=== PATIENT | male | born 1985 | race Caucasian/White ===

== ENCOUNTER 2024-05-10 13:25 | Inpatient (IN) ==
--- NOTE | 2024-05-10 14:22 | Emergency Department Note ---
Impression & Plan Acute cellulitis, Penile discharge, Cellulitis of scrotum, One undescended testicle ED Provider Note Name: MIMI BELTRE Age: 39 Sex: Male Arrives Via: Walk-In Informant: Patient, ED Provider: Lui Weinstein MD Chief Complaint: Scrotal pain Impression: As per impressions above Medical Decision Makin-year-old male uncontrolled diabetic arrives for evaluation of severe scrotal and penile pain. 3 to 4 days fevers chills illness. Patient arrives appearing quite ill. Septic workup initiated with cultures obtained. Examination does reveal a severe cellulitis of the penile skin and scrotum and developing pustules in the suprapubic region. Cannot completely rule out that these are blisters from herpetic but much more likely bacterial in nature. Patient was empirically given IV fluids along with broad-spectrum antibiotics. Fortunately patient's blood pressure remained stable and his labs actually turned quite reassuring. He is moderately hyperglycemic but he is not in DKA. I did obtain a CT of the abdomen pelvis with IV contrast which does not show any clear evidence of gas-forming bacteria. I do not see any clear sign that this is truly Christianne's gangrene and is more along the lines of a severe cellulitis. I did give urology a heads up about the patient however I do not see a clear indication for emergent surgical intervention. Cultures were sent of the area along with viral swab. Patient agreeable to hospitalization and hospitalist consulted for further management. While examination concerning for sepsis given my findings I do not feel he is severe sepsis at this time. Triage/Nursing Notes reviewed by Me Differential:Viral syndrome, cellulitis, forniers gangrene, pharyngitis, pneumonia, influenza, meningitis, urinary tract infection, sepsis, bacteremia, as well as other pathologies. Vital Signs: reviewed and remarkable for tachycardic Interventions: Normal saline bolus, Zosyn IV, Dilaudid IV x 2 Labs:ED labs Reviewed by me and remarkable for normal lactic acid, normal white count and normal procalcitonin. Moderate hyperglycemia Imagin view chest x-ray as per my interpretation. Indication sepsis. No infiltrate or effusion appreciated. EKG:As per my interpretation. Indication sepsis. Sinus tachycardia 108 bpm QTc of 439. There is no ectopy nor ischemia. No previous EKGs for comparison Cardiac/Tele Monitoring: Cardiac Monitoring: An Order was placed for continuous cardiac monitoring. The monitor shows a rate of 110 with a sinus tach rhythm. Consults:Discussed briefly with Dr. Pisano of urology to make him aware patient being hospitalized. Discussed with Dr. Giraldo of hospitalist service Plan: Disposition:Hospitalization. History of Present Illness: 39-year-old gentleman arrives for evaluation of illness. Patient states for the last 3 to 4 days he has had increasing fevers, chills, illness. Mild shortness of breath and cough initially. He is noted that he started developing redness and pain around his penis and scrotum and over the last 24 hours the entire area has become edematous erythematous and draining pus. He has developed small pustules throughout the entire area as well. He has severe pain with any palpation of the area. Denies any falls, trauma, injuries. Has a history of yeast infections of the groin for which she was recently treated with ketoconazole. Patient has a history of diabetes and admits that he does not ever check his blood sugars. He does use insulin daily but has not been taking his metformin as he was instructed to. Patient denies any syncope, chest pain, difficulty breathing, runny nose or other concerning signs or symptoms. Patient states that due to the swelling in his genital region he is no longer able to stand and pee or has he says push his penis out. He has been having to sit down to urinate the last few hours. Past Medical History: Diabetes, hypertension, dyslipidemia, depression Home Medications: Insulin, metformin, lisinopril, atorvastatin, sertraline Allergies: No known drug allergies Vitals:Blood Pressure: 144/90, Pulse 105, RR 18, T 36.6C, O2 98% on RA Physical Exam: GENERAL: Patient is ill/unwell appearing and in moderate distress. Flushed RESPIRATORY: Mild dyspnea/tachypnea though clear lung sounds throughout CARDIOVASCULAR: Tachycardic.No murmur appreciated. GASTROINTESTINAL: Abdomen soft, non-tender, no peritonitis. : Patient with an internally inverted penis. He has diffuse erythema and edema of the peripenile skin, scrotum and developing small blisters surrounding the suprapubic and genital area. Severe pain with even light palpation of the area EXTREMITIES: Normal motion all extremities, no cyanosis, no edema. NEUROLOGIC: Alert and oriented. No focal neurologic deficits appreciated SKIN: No rash, no jaundice, no diaphoresis. PSYCH: Appropriate GCS: 15 ED Course: Times/Reassessments: Patient does appear significantly improved with IV pain medication along with IV fluids. Agreeable to hospitalization. Lui Weinstein MD Past Med/Surg History Problem List (Updated 05/12/24 @ 15:54 by Lui Weinstein MD) One undescended testicle (Acute) Cellulitis of scrotum (Acute) Acute cellulitis (Acute) Penile discharge (Acute) Type 2 diabetes mellitus Medical History (Updated 05/12/24 @ 15:54 by Lui Weinstein MD) DKA (diabetic ketoacidosis) Social History Smoking Status: Former smoker Tobacco Type: Cigarettes Second Hand Exposure: No; Do You Dip or Chew Tobacco: Yes; Hx Alcohol Use: Yes Alcohol type: beer Hx Substance Use: No Preferred Language: [place] Communication Ability: Effective Beliefs That Will Affect Care: None Current Living Situation: Family Feels Safe at Home: Yes Assistive Devices: None Allergies Allergies Allergy/AdvReac Type Severity Reaction Status Date / Time No Known Allergies Allergy Unverified 05/10/24 16:19 Home Meds Home Medications Medication Instructions Recorded Confirmed atorvastatin 10 mg tablet 10 mg PO DAILY 05/10/24 05/10/24 insulin aspart U-100 100 unit/mL 1 sliding scale dose subcut 05/10/24 05/10/24 (3 mL) subcutaneous pen (Novolog USEASDIRECTD FlexPen U-100 Insulin aspart) insulin glargine 100 unit/mL (3 40 unit subcut DAILY 05/10/24 05/10/24 mL) subcutaneous pen (Lantus Solostar U-100 Insulin) lisinopril 20 mg tablet 20 mg PO DAILY 05/10/24 05/10/24 metformin 500 mg tablet 500 mg PO BID 05/10/24 05/10/24 sertraline 50 mg tablet 50 mg PO DAILY 05/10/24 05/10/24 Results & Data (ED) Vital Signs Vital Signs - 24 hr 05/10/24 13:26 05/10/24 13:26 05/10/24 15:01 Temperature 36.6 C Temperature Source Temporal Artery Scan Pulse Rate 115 H Pulse Rate [Right] 105 H 110 H Pulse Rhythm [Right] Regular Pulse Strength [Right] Normal Respiratory Rate 18 18 20 Respiratory Effort / Characteristics Non-Labored Spontaneous Respiratory Depth Normal Respiratory Pattern Regular Blood Pressure 136/102 H Blood Pressure [Left Arm] 144/90 H 147/92 H Blood Pressure Mean 113 Blood Pressure Mean [Left Arm] 108 110 Pulse Oximetry 99 98 96 Oxygen Delivery Method Room Air Sepsis Recent Fever Within 48 Hours No Sepsis New/Unexplained Change in Mental Status N/A Sepsis Action Taken by Nursing No Action Required Laboratory Data 05/12/24 06:44 05/12/24 06:44 Lab Results 05/10/24 05/10/24 05/10/24 Range/Units 13:50 14:29 14:33 POC Hgb (14.0-18.0) g/dl POC Hct (42-52) % ESR (0-15) mm/hr VBG pH 7.41 (7.36-7.41) VBG pCO2 47 (38-50) mmHg VBG pO2 < 20 mmHg VBG HCO3 30 mmol/L VBG O2 Saturation < 60.0 % VBG Base Excess 4.3 mEq/L POC Sodium (135-144) mmol/L POC Potassium (3.3-5.0) mmol/L POC Chloride (101-112) mmol/L POC Total CO2 (24-31) mmol/L POC Anion Gap (16-25) mmol/L POC BUN (7-18) mg/dl POC Creatinine (0.6-1.3) mg/dl POC Glucose 252 H (70-99) mg/dl POC Glucose (other) (70-99) mg/dl Lactate 1.6 (0.4-2.0) mmol/L POC Ioniz Calcium Jordan (1.12-1.32) mmol/l C-Reactive Protein 18.77 H (0-0.5) mg/dl 05/10/24 05/10/24 Range/Units 14:57 16:00 POC Hgb 15.3 (14.0-18.0) g/dl POC Hct 45 (42-52) % ESR 45 H (0-15) mm/hr VBG pH (7.36-7.41) VBG pCO2 (38-50) mmHg VBG pO2 mmHg VBG HCO3 mmol/L VBG O2 Saturation % VBG Base Excess mEq/L POC Sodium 137 (135-144) mmol/L POC Potassium 4.3 (3.3-5.0) mmol/L POC Chloride 98 L (101-112) mmol/L POC Total CO2 27 (24-31) mmol/L POC Anion Gap 17.0 (16-25) mmol/L POC BUN 13 (7-18) mg/dl POC Creatinine 0.5 L (0.6-1.3) mg/dl POC Glucose (70-99) mg/dl POC Glucose (other) 258 H (70-99) mg/dl Lactate (0.4-2.0) mmol/L POC Ioniz Calcium Jordan 1.10 L (1.12-1.32) mmol/l C-Reactive Protein (0-0.5) mg/dl Administered Medications Atorvastatin Calcium (Atorvastatin 10 Mg Tab) 10 mg PO DAILY [facility] Stop: 06/10/24 08:59 Last Admin: 05/12/24 08:21 Dose: 10 mg Documented By: Admin: 05/11/24 07:38 Dose: 10 mg Documented By: AMY Cefepime HCl (Maxipime 2000mg) 2,000 mg in 20 mls @ 5 mls/min IV Q8H [facility]; Protocol Stop: 05/20/24 20:59 Last Admin: 05/12/24 12:48 Dose: 5 mls/min Documented By: Admin: 05/12/24 05:35 Dose: 5 mls/min Documented By: Yolanda Admin: 05/11/24 21:12 Dose: 5 mls/min Documented By: Yolanda Admin: 05/11/24 12:06 Dose: 5 mls/min Documented By: Admin: 05/11/24 05:39 Dose: 5 mls/min Documented By: Yolanda Admin: 05/10/24 20:13 Dose: 5 mls/min Documented By: DWAIN Insulin Aspart (Insulin Aspart Per Unit Charge) 0 units SC ACHS [facility] Stop: 06/10/24 11:29 Last Admin: 05/12/24 12:48 Dose: 24 units Documented By: DHRUV Co-signed By: ELVIRA Admin: 05/12/24 08:52 Dose: 21 units Documented By: DHRUV Co-signed By: ELVIRA Admin: 05/11/24 21:07 Dose: 208 units Documented By: Yolanda Co-signed By: KITA Admin: 05/11/24 17:52 Dose: 15 units Documented By: AMY Co-signed By: DYLLAN Admin: 05/11/24 13:14 Dose: 10 units Documented By: AMY Co-signed By: MATEO Insulin Glargine (Lantus Per Unit Charge) 0 units SQ HS [facility]; Protocol Stop: 06/10/24 20:59 Last Admin: 05/11/24 21:07 Dose: 10 units Documented By: [id number] Co-signed By: KITA Insulin Glargine (Lantus Per Unit Charge) 50 units SQ DAILY [facility] Stop: 06/11/24 08:59 Last Admin: 05/12/24 08:53 Dose: 50 units Documented By: DHRUV Co-signed By: ELVIRA Lisinopril (Lisinopril 20 Mg Tab) 20 mg PO DAILY [facility] Stop: 06/10/24 08:59 Last Admin: 05/12/24 08:21 Dose: 20 mg Documented By: Admin: 05/11/24 07:38 Dose: 20 mg Documented By: AMY Sertraline HCl (Sertraline Hcl 50 Mg Tablet) 50 mg PO DAILY [facility] Stop: 06/10/24 08:59 Last Admin: 05/12/24 08:21 Dose: 50 mg Documented By: Admin: 05/11/24 07:38 Dose: 50 mg Documented By: AMY Tramadol HCl (Tramadol Hcl 50 Mg Tablet) 50 mg PO Q4H PRN PRN Reason: Pain Stop: 06/10/24 13:01 Last Admin: 05/12/24 12:48 Dose: 50 mg Documented By: Admin: 05/12/24 05:45 Dose: 50 mg Documented By: [id number] Admin: 05/11/24 22:19 Dose: 50 mg Documented By: [id number] Admin: 05/11/24 17:52 Dose: 50 mg Documented By: Admin: 05/11/24 13:14 Dose: 50 mg Documented By: AMY Valacyclovir HCl (Valacyclovir Hcl 500 Mg Tablet) 1,000 mg PO BID [facility] Stop: 05/20/24 20:59 Last Admin: 05/12/24 08:21 Dose: 1,000 mg Documented By: Admin: 05/11/24 20:48 Dose: 1,000 mg Documented By: [id number] Admin: 05/11/24 07:38 Dose: 1,000 mg Documented By: Admin: 05/10/24 20:20 Dose: 1,000 mg Documented By: DWAIN Discontinued Medications Acetaminophen (Acetaminophen 325 Mg Tab) 650 mg PO Q4H PRN PRN Reason: Fever/Mild Pain (Pain 1,2,3) Stop: 06/09/24 18:00 Last Admin: 05/12/24 15:19 Dose: 650 mg Documented By: Admin: 05/12/24 08:26 Dose: 650 mg Documented By: Admin: 05/11/24 20:47 Dose: 650 mg Documented By: [id number] Admin: 05/11/24 16:00 Dose: 650 mg Documented By: Admin: 05/11/24 11:28 Dose: 650 mg Documented By: Admin: 05/11/24 06:32 Dose: 650 mg Documented By: [id number] Hydromorphone HCl (Hydromorphone Inj 1 Mg/Ml Syringe) 1 mg IV NOW STA Stop: 05/10/24 14:18 Last Admin: 05/10/24 14:36 Dose: 1 mg Documented By: ATIYA Hydromorphone HCl (Hydromorphone Inj 1 Mg/Ml Syringe) 1 mg IV NOW STA Stop: 05/10/24 16:23 Last Admin: 05/10/24 17:05 Dose: 1 mg Documented By: CRISTINA Hydromorphone HCl (Hydromorphone Inj 1 Mg/Ml Syringe) 1 mg IV Q3H PRN PRN Reason: Severe Pain (7,8,9,10) on NRS Stop: 05/24/24 18:00 Last Admin: 05/11/24 12:08 Dose: 1 mg Documented By: Admin: 05/11/24 08:50 Dose: 1 mg Documented By: Admin: 05/11/24 05:39 Dose: 1 mg Documented By: [id number] Admin: 05/10/24 23:15 Dose: 1 mg Documented By: [id number] Admin: 05/10/24 20:11 Dose: 1 mg Documented By: DWAIN Hydromorphone HCl (Hydromorphone Inj 0.5 Mg/0.5 Ml Syr) 0.5 mg IV NOW STA Stop: 05/10/24 22:03 Last Admin: 05/10/24 22:17 Dose: Not Given Documented By: [id number] Sodium Chloride (Nss) 1,000 mls @ 999 mls/hr IV .Q1H1M [facility] Stop: 05/10/24 15:30 Last Infusion: 05/10/24 15:15 Dose: Infused Documented By: Admin: 05/10/24 14:44 Dose: 999 mls/hr Documented By: NA Sodium Chloride (Nss) 1,000 mls @ 999 mls/hr IV .Q1H1M [facility] Stop: 05/10/24 16:30 Last Infusion: 05/10/24 18:04 Dose: Infused Documented By: Admin: 05/10/24 17:02 Dose: 999 mls/hr Documented By: Infusion: 05/10/24 15:15 Dose: Infused Documented By: Admin: 05/10/24 14:45 Dose: 999 mls/hr Documented By: NA Piperacillin Sod/Tazobactam Sod (Zosyn) 4.5 gm in 100 mls @ 200 mls/hr IV NOW ONE; Protocol Stop: 05/10/24 16:27 Last Infusion: 05/10/24 17:07 Dose: Infused Documented By: Admin: 05/10/24 16:30 Dose: 200 mls/hr Documented By: CRISTNIA Vancomycin HCl 2,750 mg/ (Sodium Chloride) 555 mls @ 200 mls/hr IV NOW ONE Stop: 05/10/24 18:44 Last Infusion: 05/10/24 19:42 Dose: Infused Documented By: [id number] Admin: 05/10/24 16:19 Dose: 200 mls/hr Documented By: CRISTINA Vancomycin HCl 2,000 mg/ (Sodium Chloride) 540 mls @ 200 mls/hr IV Q8H [facility] Stop: 05/21/24 00:00 Last Infusion: 05/12/24 12:02 Dose: Infused Documented By: Admin: 05/12/24 08:20 Dose: 200 mls/hr Documented By: Infusion: 05/12/24 03:50 Dose: Infused Documented By: [id number] Admin: 05/11/24 23:52 Dose: 200 mls/hr Documented By: [id number] Infusion: 05/11/24 17:54 Dose: Infused Documented By: Admin: 05/11/24 15:08 Dose: 200 mls/hr Documented By: Infusion: 05/11/24 10:17 Dose: Infused Documented By: Admin: 05/11/24 07:31 Dose: 200 mls/hr Documented By: Infusion: 05/11/24 01:59 Dose: Infused Documented By: [id number] Admin: 05/10/24 23:15 Dose: 200 mls/hr Documented By: Yolanda Acetaminophen (Ofirmev) 1,000 mg in 100 mls @ 400 mls/hr IV NOW STA Stop: 05/10/24 18:28 Last Infusion: 05/10/24 19:08 Dose: Infused Documented By: Admin: 05/10/24 18:26 Dose: 400 mls/hr Documented By: SHRAVAN Fluconazole (Diflucan) 100 mg in 50 mls @ 100 mls/hr IV Q24H [facility] Stop: 05/20/24 19:29 Last Infusion: 05/11/24 21:23 Dose: Infused Documented By: Yolanda Admin: 05/11/24 20:47 Dose: 100 mls/hr Documented By: Yolanda Infusion: 05/10/24 20:46 Dose: Infused Documented By: Admin: 05/10/24 20:14 Dose: 100 mls/hr Documented By: DWAIN Insulin Aspart (Insulin Aspart Per Unit Charge) 0 units SC ACHS [facility] Stop: 06/09/24 18:00 Last Admin: 05/10/24 20:06 Dose: Not Given Documented By: Yolanda Admin: 05/10/24 19:39 Dose: 9 units Documented By: DWAIN Co-signed By: Yolanda Insulin Aspart (Insulin Aspart Per Unit Charge) 0 units SC Q6 [facility] Stop: 06/10/24 05:59 Last Admin: 05/11/24 05:39 Dose: 6 units Documented By: Yolanda Co-signed By: LUIS Insulin Aspart (Insulin Aspart Per Unit Charge) 0 units SC NOW ONE Stop: 05/11/24 08:31 Last Admin: 05/11/24 08:51 Dose: 8 units Documented By: AMY Co-signed By: IVANA Insulin Glargine (Lantus Per Unit Charge) 40 units SQ DAILY [facility] Stop: 06/10/24 08:59 Last Admin: 05/11/24 08:51 Dose: 40 units Documented By: AMY Co-signed By: IVANA Insulin Glargine (Lantus Per Unit Charge) 20 units SQ NOW [facility] Stop: 05/10/24 18:29 Last Admin: 05/10/24 19:40 Dose: 20 units Documented By: DWAIN Co-signed By: [id number] Ioversol (Optiray 320 125ml) 119 ml IV ONCE ONE Stop: 05/10/24 15:15 Last Admin: 05/10/24 15:15 Dose: 119 ml Documented By: BERTAK Oxycodone HCl (Oxycodone Hcl Ir 5 Mg Tab (Immediate Release)) 5 mg PO NOW [facility] Stop: 05/11/24 23:44 Last Admin: 05/11/24 23:49 Dose: 5 mg Documented By: [id number] Tramadol HCl (Tramadol Hcl 50 Mg Tablet) 50 mg PO NOW [facility] Stop: 05/10/24 22:10 Last Admin: 05/10/24 22:24 Dose: 50 mg Documented By: DWAIN Discharge Plan Visit Data Chief Complaint: Swelling/Edema to Extremity Stated Complaint: DKA, DIZZY, VOMITING, GENITAL PAIN/EDEMA ED Provider: Lui Weisntein Discharge Problem: Acute cellulitis, Penile discharge, Cellulitis of scrotum, One undescended testicle Patient Disposition: Admitted As Inpatient Discharge Instructions Interventions: ED Discharge Assessment Last Done: 05/10/24 17:35 Discharge Problem: One undescended testicle Qualifiers: Undescended testicle location: high scrotal Qualified Code(s): Q53.13 - Unilateral high scrotal testis
[2024-05-10] MEDS: HYDROmorphone INJ 1 MG/ML SYRINGE IV STA ×2 (14:36→17:05)
[2024-05-10 14:41] LABS: Basophils # (auto) 0.02 K/uL (0.00-0.20); Basophils % (auto) 0.3 %; Eosinophils # (auto) 0.07 K/uL (0.00-0.50); Eosinophils % (auto) 1.2 %; Hematocrit (blood only) 46.7 % (42.0-52.0); Hemoglobin 15.4 g/dl (14.0-18.0); Immature Granulocytes # (auto) 0.04 K/uL (0.01-0.20); Immature Granulocytes % (auto) 0.7 %; Lymphocytes # (auto) 0.58 K/uL (1.20-3.40); Lymphocytes % (auto) 9.9 %; Mean Corpuscular Hemoglobin 26.8 pg (25.0-34.0); Mean Corpuscular Volume 81.4 fL (80.0-100.0); Mean Platelet Volume 8.2 fL (9.4-12.4); Monocytes # (auto) 0.55 K/uL (0.11-0.59); Monocytes % (auto) 9.4 %; Neutrophils # (auto) 4.59 K/uL (1.40-6.50); Neutrophils % (auto) 78.5 %; Platelet Count 206 K/uL (130-400); RDW Coefficient of Variation 13.7 % (11.5-14.5); RDW Standard Deviation 40.5 fL (36.4-46.3); Red Blood Count 5.74 M/uL (4.70-6.10); White Blood Count 5.85 K/ul (4.8-10.8)
[2024-05-10] MEDS: SODIUM CHLORIDE 0.9% 1,000 ML IV SCH ×2 (14:44→14:45)
[2024-05-10 14:45] LABS: Base Excess VBG 4.3 mEq/L; HCO3 VBG 30 mmol/L; Oxygen Saturation VBG < 60.0 %; PCO2 VBG 47 mmHg (38-50); PO2 VBG < 20 mmHg; pH VBG 7.41 (7.36-7.41)
[2024-05-10 14:57] LABS: Albumin Level 3.7 gm/dl (3.4-5.0); Bilirubin Direct 0.2 mg/dl (0-0.2); Bilirubin,Total 0.6 mg/dl (0.2-1.0); Calcium 9.2 mg/dl (8.6-10.3); Creatinine Clr Calc Pharmacy 258.8 ml/min; Magnesium 1.7 mg/dl (1.7-2.4); Potassium 3.8 mmol/L (3.5-5.1); Total Protein 8.1 gm/dl (6.0-8.3)
[2024-05-10 15:02] LABS: Troponin I High Sensitivity 6.1 pg/ml (0-20)
[2024-05-10 15:10] LABS: iSTAT Creatinine 0.5 mg/dl (0.6-1.3); iSTAT Hemoglobin 15.3 g/dl (14.0-18.0); iSTAT Ionized Calcium 1.1 mmol/l (1.12-1.32); iSTAT Potassium 4.3 mmol/L (3.3-5.0)
--- NOTE | 2024-05-10 15:12 | XRay Report ---
Chest radiograph, one view History: Sepsis Comparison: None Findings: Single AP view of the chest performed. No focal consolidation or pleural effusion. No pneumothorax. The cardiomediastinal silhouette is within normal limits. Normal pulmonary vascularity. No evidence for lymphadenopathy. No visualized bony or soft tissue abnormality. Impression: Normal chest radiograph Electronically signed by Dannie Flowers 05-10-2024 3:10 PM
[2024-05-10] MEDS: OPTIRAY 320 125ml IV ONE (15:15)
--- NOTE | 2024-05-10 15:37 | CT Scan Report ---
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 TECHNIQUE: Helical CT imaging of the abdomen and pelvis was performed following uneventful administration of 119 mL of Optiray 320 IV contrast. Images are presented in axial, sagittal, coronal reformats COMPARISON: None FINDINGS: Lung Bases/Inferior Mediastinum: Unremarkable Liver: Mild hepatic steatosis. Gallbladder: Unremarkable Spleen: Unremarkable Adrenals: Unremarkable Pancreas: Unremarkable Kidneys: Unremarkable Stomach/Bowel: Small bowel loops are normal in caliber. Normal caliber appendix. The colon is unremarkable. A few scattered colonic diverticula are noted. Stomach and duodenum are unremarkable. Lymph nodes: Enlarged bilateral inguinal lymph nodes are nonspecific. Index left inguinal lymph node measures 3.1 x 1.7 cm on series 2 image 101 Vasculature: Unremarkable Pelvis: Urinary bladder, prostate, and seminal vesicles are unremarkable. No free pelvic fluid. Soft Tissues: Enlarged bilateral inguinal lymph nodes may be reactive. Small left scrotal hydrocele. Small fluid collection along the right inguinal canal measuring 4.6 x 2.6 x 5.2 cm on series 3 image 465 no soft tissue gas involving the pelvic or scrotal soft tissues is appreciated. Bones: Degenerative changes of the hips, pelvis, and lumbar spine. IMPRESSION: 1. Small fluid collection measuring 4.6 x 2.6 x 5.2 cm along the right inguinal canal on series 3 image 465possibly representingsmall scrotal hydrocele with an incompletely descended right testicle. Small left scrotal hydrocele. Minimal subcutaneous inflammation along the scrotum and anterior pelvic soft tissues. No soft tissue gas. 2. Enlarged bilateral inguinal lymph nodes are nonspecific and could be reactive in the setting of acute cellulitis. Short interval follow-up is recommended. 3. Numerous additional chronic and/or incidental findings as detailed above. Electronically signed by Soham Ellis 05-10-2024 3:36 PM
[2024-05-10] MEDS ORDERED: VANCOMYCIN CONSULT ACTIVE PRN ×2 (15:58→18:01)
[2024-05-10] MEDS: VANCOMYCIN HCL 2,750 MG in SODIUM CHLORIDE 0.9% 500 ML IV ONE (16:19)
--- NOTE | 2024-05-10 16:24 | History & Physical Report ---
Date of Service May 10, 2024 Assessment & Plan (1) Penile discharge: (2) Acute cellulitis: (3) Type 2 diabetes mellitus: Plan Yonis is a 39-year-old male with PMH of T2DM and DKA. He presented on 05/10 for groin pain and penile discharge. Patient reports that the pain in his groin region is a 9.25 out of 10 at time admission. He characterizes it as a burning pain that feels like "fire", with occasional sharp stabbing pain in his groin. He reports his buttocks is numb at this time. No radiation, the pain does stay in the genitals. No numbness or tingling going down his legs. He endorses pus- like/serosanguineous discharge for the past 3 days. He denies prior history of STDs. #Penile discharge/groin pain No leukocytosis; afebrile on arrival Procalcitonin WNL CRP and ESR ordered, pending A/P CT on arrival revealed small fluid collection along the right inguinal canal which may represent a scrotal hydrocele No soft tissue gas noted on A/P CT Blistering noted above the groin infection; ?Herpetic infection; ?Acute worsening of fungal infection Wound culture ordered, pending HSV 1+2 DNA PCR ordered, pending Chlam+GC RNA ordered, pending Given acute risk for herpetic infection, empiric coverage with valacyclovir 1000 mg p.o. BID Vancomycin 2000 mg IV q12h Cefepime 2000 mg IV q8h Acetaminophen and Dilaudid as needed for fever/pain control Urology consult appreciated # Poorly controlled T2DM While there is no A1c on file, he reports his last A1c was around 12% Hold metformin Patient is normally on Lantus 40u daily Lantus BID + SSI while inpatient T2DM diet BSG ACHS Adjust regimen as needed Pharmacy glycemic management consult appreciated Diabetic education consult appreciated AM A1c Chronic stable conditions: HLD-atorvastatin HTN-lisinopril Depression-sertraline Disposition: Admit to MedSur telemetry Full code T2DM diet VTE PPx: SCDs History of Present Illness Chief Complaint: Groin pain, penile discharge Primary Care Provider: NO PCP Yonis is a 39-year-old male with PMH of T2DM and DKA. He presented on 05/10 for groin pain and penile discharge. Patient reports that the pain in his groin region is a 9.25 out of 10 at time admission. He characterizes it as a burning pain that feels like "fire", with occasional sharp stabbing pain in his groin. He reports his buttocks is numb at this time. No radiation, the pain does stay in the genitals. No numbness or tingling going down his legs. He endorses pus- like/serosanguineous discharge for the past 3 days. He denies prior history of STDs. He is sexually active with his . He reports he did have a fever a couple days ago measuring up to 102 F. He has been taking ibuprofen, Amrita- [place], DayQuil, and NyQuil for his symptoms, without much relief. Patient took his regular morning medicine today; he normally takes 40 units of Lantus daily, but only took 20 this morning. Only recent change in medication, is that he started back on metformin yesterday. Patient denies smoking tobacco, but does endorse chewing tobacco. He denies vaping or recent alcohol use. 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 He denies prior history of DVT/PE. In regard to diabetes, patient previously followed with Dr. Ravi ( Endo) and Mary, and would like to be reconnected if possible. Patient is hypertensive at 147/92, and tachycardic at 106 bpm at time of admission. ED course: Vancomycin 2750 mg IV Zosyn 4.5 g IV NSS 1000 mL IV x 2 Dilaudid 1 mg IV ROS: Patient endorses burning penile pain/discharge, fever, body aches, chills, night-sweats, an episode of DAVIS (resolved; occurred while sick with flu earlier in this week), and numbness/tingling in the buttocks. Patient denies headaches, changes in vision, photophobia, dry cough, chest pain, pleuritic CP, SOB at rest, abdominal pain, N/V/D, or numbness or tingling going down the legs. Allergies Allergy/AdvReac Type Severity Reaction Status Date / Time No Known Allergies Allergy Unverified 05/10/24 16:19 Home Medications Medication Instructions Recorded Confirmed Type atorvastatin 10 mg tablet 10 mg PO DAILY 05/10/24 05/10/24 History insulin aspart U-100 100 unit/mL 1 sliding scale dose subcut 05/10/24 05/10/24 History (3 mL) subcutaneous pen (Novolog USEASDIRECTD FlexPen U-100 Insulin aspart) insulin glargine 100 unit/mL (3 40 unit subcut DAILY 05/10/24 05/10/24 History mL) subcutaneous pen (Lantus Solostar U-100 Insulin) lisinopril 20 mg tablet 20 mg PO DAILY 05/10/24 05/10/24 History metformin 500 mg tablet 500 mg PO BID 05/10/24 05/10/24 History sertraline 50 mg tablet 50 mg PO DAILY 05/10/24 05/10/24 History Past Med/Surg History Problem List (Updated 05/10/24 @ 17:28 by Noah Ca PA-C) Acute cellulitis Penile discharge Type 2 diabetes mellitus Medical History (Updated 05/10/24 @ 17:28 by Noah Ca PA-C) DKA (diabetic ketoacidosis) Social History Smoking Status: Never smoker Preferred Language: Nepali Feels Safe at Home: Yes Review of Systems Review of Systems: See HPI above Physical Exam Physical Exam: General: Moderate physical distress secondary to genital pain; family bedside; non-toxic appearing; cooperative; SpO2 97% on RA HEENT: normocephalic, atraumatic; no scleral icterus; PERRLA; vision and hearing grossly intact Neck: supple; no lymphadenopathy; trachea midline Skin: warm, dry without signs of tenting; no cyanosis; no rashes, bruising, lesions, or erythema noted CV: chest wall NTP; RR, tachycardic around 105 bpm; S1/S2 normal; no murmurs/rubs/gallops; pulses intact and symmetric at radial, DP, and PT Lungs: no acute respiratory distress; symmetrical chest wall expansion; clear breath sounds across all lung padron w/o adventitious sounds; no wheezing ABD: Soft, NTP; BS present; no rebound/guarding; moderate distention secondary to body habitus : Patient was assessed with Dr. Giraldo at bedside; patient exhibits erythematous crusting lesions above the penis; penile discharge and erythema surrounding the genitals MSK: no tics or fasciculations; no edema noted in the LEs b/l, nonerythematous Neuro: A&Ox3; normal mood and affect; fluent speech; no focal deficits; sensation intact and symmetric in lower extremities bilaterally Results & Data Results & Data Vital Signs (Past 12 Hours) Vital Signs Temp Pulse Pulse Resp BP BP Pulse Ox 05/10/24 16:18 104 H 20 147/87 H 97 05/10/24 15:44 106 H 05/10/24 15:01 110 H 20 147/92 H 96 05/10/24 13:26 105 H 18 144/90 H 98 05/10/24 13:26 36.6 C 115 H 18 136/102 H 99 O2 Del Method 05/10/24 16:18 Room Air 05/10/24 15:44 05/10/24 15:01 Room Air 05/10/24 13:26 05/10/24 13:26 Laboratory Results Abnormal lab results 05/10/24 05/10/24 05/10/24 Range/Units 13:50 14:57 Unknown MPV 8.2 L (9.4-12.4) fL Lymph # (Auto) 0.58 L (1.20-3.40) K/uL Sodium 135 L (136-145) mmol/L POC Chloride 98 L (101-112) mmol/L Chloride 97 L (98-107) mmol/L POC Creatinine 0.5 L (0.6-1.3) mg/dl BUN/Creatinine Ratio 21.0 H (10-20) Glucose 262 H (70-99(Fasting)) mg/dl POC Glucose 252 H (70-99) mg/dl POC Glucose (other) 258 H (70-99) mg/dl POC Ioniz Calcium Jordan 1.10 L (1.12-1.32) mmol/l Diagnostic Findings Abdomen/Pelvis CT 05/10/24 14:17 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 TECHNIQUE: Helical CT imaging of the abdomen and pelvis was performed following uneventful administration of 119 mL of Optiray 320 IV contrast. Images are presented in axial, sagittal, coronal reformats COMPARISON: None FINDINGS: Lung Bases/Inferior Mediastinum: Unremarkable Liver: Mild hepatic steatosis. Gallbladder: Unremarkable Spleen: Unremarkable Adrenals: Unremarkable Pancreas: Unremarkable Kidneys: Unremarkable Stomach/Bowel: Small bowel loops are normal in caliber. Normal caliber appendix. The colon is unremarkable. A few scattered colonic diverticula are noted. Stomach and duodenum are unremarkable. Lymph nodes: Enlarged bilateral inguinal lymph nodes are nonspecific. Index left inguinal lymph node measures 3.1 x 1.7 cm on series 2 image 101 Vasculature: Unremarkable Pelvis: Urinary bladder, prostate, and seminal vesicles are unremarkable. No free pelvic fluid. Soft Tissues: Enlarged bilateral inguinal lymph nodes may be reactive. Small left scrotal hydrocele. Small fluid collection along the right inguinal canal measuring 4.6 x 2.6 x 5.2 cm on series 3 image 465 no soft tissue gas involving the pelvic or scrotal soft tissues is appreciated. Bones: Degenerative changes of the hips, pelvis, and lumbar spine. IMPRESSION: 1. Small fluid collection measuring 4.6 x 2.6 x 5.2 cm along the right inguinal canal on series 3 image 465possibly representingsmall scrotal hydrocele with an incompletely descended right testicle. Small left scrotal hydrocele. Minimal subcutaneous inflammation along the scrotum and anterior pelvic soft tissues. No soft tissue gas. 2. Enlarged bilateral inguinal lymph nodes are nonspecific and could be reactive in the setting of acute cellulitis. Short interval follow-up is recommended. 3. Numerous additional chronic and/or incidental findings as detailed above. Electronically signed by Soham Ellis 05-10-2024 3:36 PM Chest X-Ray 05/10/24 14:18 Chest radiograph, one view History: Sepsis Comparison: None Findings: Single AP view of the chest performed. No focal consolidation or pleural effusion. No pneumothorax. The cardiomediastinal silhouette is within normal limits. Normal pulmonary vascularity. No evidence for lymphadenopathy. No visualized bony or soft tissue abnormality. Impression: Normal chest radiograph Electronically signed by Dannie Flowers 05-10-2024 3:10 PM ECG Additional Comments: ECG revealed sinus tachycardia at 108 bpm; QTc 439 Code Status & VTE Plan Code Status Full code VTE Prophylaxis Plan VTE Prophylaxis will be ordered: Yes Supervising Physician Co-Signing Physician Notes I have personally seen, evaluated and examined the patient. I have also personally discussed the management of the patient with the resident physician/WILLIE and I agree with the exam findings documented in the history and physical examination and the documented assessment and plan unless otherwise stated below. Brief Exam: In general is a pleasant 39-year-old male accompanied by his and his father at time my exam. He interacts appropriately and pleasantly. His only complaint is pain in his peritoneal region genital region. States has never had anything like this in the past. HEENT: Normocephalic atraumatic. Heart: Regular rate and rhythm mildly tachycardic no appreciable murmur. Lungs: Diminished but clear. Abdomen: Obese soft. Extremities: Intact no appreciable clubbing cyanosis or edema. Neurologically: Intact no focal deficit whatsoever. Urogenital exam: The family did step out of the room the patient was evaluated with physician medical assistant internal medicine, Noah, in the room with me. The patient has significant changes of erythema in the scrotal region and upper inner thighs bilaterally right worse than left. With some what appears to be possible penile discharge versus discharge from crusted lesions over the suprapubic region with active discharge is difficult to tell given the patient's genitalia if this is actually penile discharge versus discharge from the surrounding tissue/foreskin excetra. Cultures were obtained by the ER provider. Assessment/plan: As discussed above. Given the patient's history of uncontrolled diabetes mellitus we will cover him with IV cefepime and IV va ncomycin. In addition given the possible herpetic nature of the suprapubic lesions there is a concern for possible HSV infection. Patient denies any such risk factors. However we will cover with Valtrex empirically until viral cultures are resulted. In addition to the cefepime and vancomycin. Discussion was undertaken with the patient his diabetes is significantly uncontrolled he is aware of this. He used to follow with endocrinology at [facility] Dr. Ravi-at which time he states that his hemoglobin A1c was well- controlled and his blood sugars were well-controlled and he lost significant weight. Diabetes education will be consulted locally while here but the patient does wish to follow-up with endocrinology and possibly reestablish a relationship with Dr. Ravi onto attempt to get better glycemic control. Please refer to orders for further planning. PG Care Time/CCT Total # of Minutes Spent Total Time Spent with Patient: Total time spent is greater than 50% in coordination of care (as documented) at patient's floor/unit and/or counseling patient: Coding [place] [address] INT INP/OBS CARE 3/75MIN Patient Type Established History Comprehensive Exam Comprehensive Medical Decision Making High Complexity Diagnoses Penile discharge R36.9 Acute cellulitis L03.90 Type 2 diabetes mellitus E11.9
[2024-05-10] MEDS: PIPERACILLIN/TAZOBACTAM 4.5 GM/100 ML BAG IV ONE (16:30)
[2024-05-10] MEDS ORDERED: ONDANSETRON INJ 2 MG/ML 2 ML VIAL IV PRN (18:01)
[2024-05-10] MEDS ORDERED: PHARMACY GLYCEMIC MGMT CONSULT PRN ×2 (18:01→19:24)
[2024-05-10] MEDS ORDERED: DEXTROSE 50% 50 ML SYRINGE IV PRN (18:01)
[2024-05-10] MEDS ORDERED: GLUCOSE 10 TAB/TUBE PO PRN (18:01)
[2024-05-10] MEDS ORDERED: GLUCOSE 40% GEL 15 GM TUBE PO PRN (18:01)
[2024-05-10] MEDS ORDERED: GLUCAGON FOR INJ 1 MG VIAL SQ PRN (18:01)
[2024-05-10] MEDS ORDERED: HYDROmorphone INJ 0.5 MG/0.5 ML SYR IV PRN (18:01)
[2024-05-10] MEDS ORDERED: CARBOHYDRATES FOR HYPOGLYCEMIA PO PRN (18:01)
[2024-05-10] MEDS: ACETAMINOPHEN 1,000 MG/100 ML VIAL IV STA (18:26)
--- NOTE | 2024-05-10 19:22 | Urology Consultation ---
Date of Consultation May 10, 2024 Assessment & Plan (1) Acute cellulitis: (2) Type 2 diabetes mellitus: Plan Severe skin infection of the foreskin and penile skin/scrotal skin Underlying risk is likely diabetesstrict glucose control is paramount and I reiterated that to the patient For now I see no role for surgical intervention but he does warrant close monitoring and serial exams Given that this started on the foreskin and glans, I suspect he may be superinfected with a combination of bacteria and yeast He is currently on vancomycin and cefepime and received a dose of Zosyn in the ER. I will add Diflucan now I will plan for repeat examination tomorrow morning He has eaten dinner tonight which is reasonable I will make him n.p.o. after midnight on the off chance that things progress, however I do not anticipate surgical intervention tomorrow morning. There is clearly a spectrum between cellulitis and Christianne's gangrene and right now he does not have evidence of Christianne's gangrene History of Present Illness Attending Physician: Nael Giraldo, PhD, DO History of Present Illness 39-year-old obese diabetic male with several days of progressive irritation of the foreskin/glans and scrotal skin Fevers at home Purulent discharge Severe pain Progression of his symptoms Upon arrival here he had lab work which showed a white count of 5000, he was febrile Had a CT from the ER which shows no clear drainable abscess or subcutaneous air Allergies Allergy/AdvReac Type Severity Reaction Status Date / Time No Known Allergies Allergy Unverified 05/10/24 16:19 Home Medications Medication Instructions Recorded Confirmed Type atorvastatin 10 mg tablet 10 mg PO DAILY 05/10/24 05/10/24 History insulin aspart U-100 100 unit/mL 1 sliding scale dose subcut 05/10/24 05/10/24 History (3 mL) subcutaneous pen (Novolog USEASDIRECTD FlexPen U-100 Insulin aspart) insulin glargine 100 unit/mL (3 40 unit subcut DAILY 05/10/24 05/10/24 History mL) subcutaneous pen (Lantus Solostar U-100 Insulin) lisinopril 20 mg tablet 20 mg PO DAILY 05/10/24 05/10/24 History metformin 500 mg tablet 500 mg PO BID 05/10/24 05/10/24 History sertraline 50 mg tablet 50 mg PO DAILY 05/10/24 05/10/24 History Patient History Medical History (Updated 05/10/24 @ 17:28 by Noah Ca PA-C) DKA (diabetic ketoacidosis) Social History Smoking Status: Former smoker Tobacco Type: Cigarettes Second Hand Exposure: No; Do You Dip or Chew Tobacco: Yes; Hx Alcohol Use: Yes Alcohol type: beer Hx Substance Use: No Preferred Language: Yoruba Beliefs That Will Affect Care: None Current Living Situation: Family Feels Safe at Home: Yes Assistive Devices: Denture - Upper and Denture - Lower Review of Systems Review of Systems: See HPI above Physical Exam Physical Exam: Erythema across the visible portion of the penile skin and upper aspect of the scrotum No palpable fluctuance Innumerable pustules and ulcerations around the skin No crepitus No eschar Unable to retract the foreskin sufficiently to expose the penis secondary to pain but there is mucopurulent discharge from the foreskin Constitutional: well developed and well nourished Respiratory: no respiratory distress Cardiovascular: Extremities: no pedal edema Gastrointestinal (Abdomen): Inspection/Auscultation: abdomen normal to inspection Results & Data Vital Signs (Past 12 Hours) Vital Signs Temp Pulse Pulse Pulse Resp BP BP 05/10/24 18:38 37.3 C 115 H 20 137/79 05/10/24 18:07 117 H 05/10/24 18:06 05/10/24 17:58 37.9 C H 113 H 18 137/96 05/10/24 17:35 105 H 18 149/91 H 05/10/24 16:18 104 H 20 147/87 H 05/10/24 15:44 106 H 05/10/24 15:01 110 H 20 147/92 H 05/10/24 13:26 105 H 18 144/90 H 05/10/24 13:26 36.6 C 115 H 18 136/102 H Pulse Ox O2 Del Method O2 Del Method 05/10/24 18:38 94 Room Air 05/10/24 18:07 05/10/24 18:06 Room Air 05/10/24 17:58 98 Room Air 05/10/24 17:35 96 05/10/24 16:18 97 Room Air 05/10/24 15:44 05/10/24 15:01 96 Room Air 05/10/24 13:26 98 05/10/24 13:26 99 PG Care Time/CCT Total # of Minutes Spent Total Time Spent with Patient: Total time spent is greater than 50% in coordination of care (as documented) at patient's floor/unit and/or counseling patient: Coding Level of Care Code 36334 IN/OBS CONSULT LVL 4,60M Diagnoses Acute cellulitis L03.90 Type 2 diabetes mellitus E11.9
[2024-05-10] MEDS: INSULIN ASPART PER UNIT CHARGE SC SCH (19:39)
[2024-05-10] MEDS: LANTUS PER UNIT CHARGE SQ STA (19:40)
[2024-05-10] MEDS: HYDROmorphone INJ 1 MG/ML SYRINGE IV PRN (20:11)
[2024-05-10] MEDS: CEFEPIME 2000MG 2,000 MG/20 ML SYR IV SCH (20:13)
[2024-05-10] MEDS: FLUCONAZOLE 100 MG/50 ML BAG IV SCH (20:14)
[2024-05-10] MEDS: valACYclovir HCL 500 MG TABLET PO SCH (20:20)
[2024-05-10] MEDS: HYDROmorphone INJ 0.5 MG/0.5 ML SYR IV STA (22:17)
[2024-05-10] MEDS: traMADol HCL 50 MG TABLET PO STA (22:24)
[2024-05-10] MEDS: VANCOMYCIN HCL 2,000 MG in SODIUM CHLORIDE 0.9% 500 ML IV SCH (23:15)
[2024-05-11] MEDS ORDERED: Nursing to Pharmacy Communication SCH (04:45)
--- NOTE | 2024-05-11 05:29 | Communication Note ---
Date of Service: May 11, 2024 Patient revisited at approximately 5:15 AM this morning. Upon reevaluation at this time there is no change in the patient's physical exam was previously noted. There is specifically no eschar or worsening erythema noted. Patient has remained normotensive without any fevers since our previous encounter.
[2024-05-11] MEDS: INSULIN ASPART PER UNIT CHARGE SC SCH ×2 (05:39→13:14)
[2024-05-11] MEDS: ACETAMINOPHEN 325 MG TAB PO PRN (06:32)
[2024-05-11] MEDS: ATORVASTATIN 10 MG TAB PO SCH (07:38)
[2024-05-11] MEDS: lisinopril 20 MG TAB PO SCH (07:38)
[2024-05-11] MEDS: SERTRALINE HCL 50 MG TABLET PO SCH (07:38)
--- NOTE | 2024-05-11 07:54 | Urology Progress Note ---
Date of Service May 11, 2024 Assessment & Plan (1) Acute cellulitis: Plan Severe balanoposthitis/cellulitis Clinically improving with antibiotics and the dose of antifungals last night Await redosed his antifungal again tonight before completing the antifungal therapy No indication for surgery Okay to have a diet Strict glucose control is paramount Admission and Anticipated Discharge Date Admission Date: May 10, 2024 Subjective Subjectively improved overnight He is not perfect but he certainly has less discomfort No drastic change in the appearance of things but certainly does not feel he has worsened either No labs yet today No fever since his evaluation last night Physical Exam Physical Exam: Minimal change in the appearance of the scrotal skin and penile skinmild erythema, may be slightly improved Still with numerous little pustules and ulcerations, these are not worse than they were yesterday Able to manipulate the skin slightly more secondary to improved pain Results & Data Vital Signs (Past 12 Hours) Vital Signs Temp Pulse Pulse Resp BP BP Pulse Ox 05/11/24 07:32 37.0 C 88 18 158/79 H 95 05/11/24 06:56 93 H 05/11/24 03:48 37 C 92 H 18 144/74 H 97 05/10/24 23:15 37 C 88 18 134/85 96 05/10/24 21:50 89 O2 Del Method 05/11/24 07:32 Room Air 05/11/24 06:56 05/11/24 03:48 Room Air 05/10/24 23:15 Room Air 05/10/24 21:50 PG Care Time/CCT Total # of Minutes Spent Total Time Spent with Patient: Total time spent is greater than 50% in coordination of care (as documented) at patient's floor/unit and/or counseling patient: Coding Level of Care Code 18368 SUB INP/OBS CARE 2/35MIN Diagnoses Acute cellulitis L03.90
[2024-05-11 07:56] LABS: Appearance Urine Clear (Clear); Bacteria Urine Automated None Seen (None Seen); Bilirubin Urine Negative (Negative); Blood Urine 1+ (Negative); Color Urine Yellow; Epithelial Cell Urine Auto 0-2 /hpf (0-2); Glucose Urine UA 2+ (Negative); Ketones Urine 1+ (Negative); Leukocyte Esterase Urine 1+ (Negative); Nitrite Urine Negative (Negative); Protein Urine Trace (Negative); Specific Gravity Urine 1.037 (1.000-1.030); Urobilinogen Urine Negative (Negative); WBC Urine Automated >50 /hpf (0-5); pH Urine 5.5 (4.5-7.5)
--- NOTE | 2024-05-11 08:30 | Electrocardiogram Report ---
Test Reason : Blood Pressure : */* mmHG Vent. Rate : 108 BPM Atrial Rate : 108 BPM P-R Int : 128 ms QRS Dur : 78 ms QT Int : 328 ms P-R-T Axes : 65 30 -28 degrees QTcB Int : 439 ms Sinus tachycardia Nondiagnostic inferior Q waves Abnormal ECG No previous ECGs available Confirmed by Jamie Fraire ([id number]) on 05/11/2024 8:30:07 AM Referred By: REFERRED SELF Confirmed By: Jamie Fraire
[2024-05-11 08:38] LABS: Hematocrit (blood only) 39.7 % (42.0-52.0); Hemoglobin 13.3 g/dl (14.0-18.0); Mean Corpuscular Hemoglobin 27.1 pg (25.0-34.0); Mean Corpuscular Hgb Conc 33.5 g/dL (32.0-36.0); Mean Corpuscular Volume 80.9 fL (80.0-100.0); Mean Platelet Volume 8.6 fL (9.4-12.4); Platelet Count 186 K/uL (130-400); RDW Coefficient of Variation 13.6 % (11.5-14.5); RDW Standard Deviation 39.8 fL (36.4-46.3); Red Blood Count 4.91 M/uL (4.70-6.10); White Blood Count 4.51 K/ul (4.8-10.8)
[2024-05-11 08:49] LABS: BUN Creatinine Ratio 24.4 (10-20); C Reactive Protein 12.28 mg/dl (0-0.5); Calcium 8.3 mg/dl (8.6-10.3); Chol HDL Ratio 3.8 (0-5); Creatinine Clr Calc Pharmacy 396.4 ml/min; Potassium 3.9 mmol/L (3.5-5.1)
[2024-05-11] MEDS: INSULIN ASPART PER UNIT CHARGE SC ONE (08:51)
[2024-05-11] MEDS: LANTUS PER UNIT CHARGE SQ SCH ×2 (08:51→21:07)
[2024-05-11 09:15] LABS: Basophils # (auto) 0.03 K/uL (0.00-0.20); Basophils % (auto) 0.7 %; Eosinophils # (auto) 0.07 K/uL (0.00-0.50); Eosinophils % (auto) 1.6 %; Immature Granulocytes # (auto) 0.03 K/uL (0.01-0.20); Immature Granulocytes % (auto) 0.7 %; Lymphocytes # (auto) 0.68 K/uL (1.20-3.40); Lymphocytes % (auto) 15.1 %; Monocytes # (auto) 0.58 K/uL (0.11-0.59); Monocytes % (auto) 12.9 %; Neutrophils # (auto) 3.12 K/uL (1.40-6.50)
--- NOTE | 2024-05-11 10:42 | Pharmacy Report ---
Pharmacy PK ABX Note - Date of Service May 11, 2024 - Assessment and Plan Assessment 39 year old M receiving cefepime/vancomycin for treatment of balanoposthitis/cellulitis . Pertinent microbiologic data includes: groin surface culture growing strep pyogenes (Group A), blood and urine cultures pending. Day # 1 of antimicrobial therapy. Plan Vancomycin * Loading dose: 2750 mg IV x 1 * Maintenance dose: 2000 mg IV every 8 hours * Regimen is predicted to achieve target AUC/BRENNA of 400-600 mg/L.hr * Random level ordered for: 05/12/23 @ 0700 Pharmacy will continue to follow and will adjust dose/frequency as necessary. Thank you. Pharmacy has transitioned to AUC monitoring for vancomycin. AUC/BRENNA is the preferred PK/PD target and is associated with decreased risk of nephrotoxicity compared to traditional trough targets.
[2024-05-11 12:17] LABS: Chlamydia trachomatis by NAA Not Detected (NotDetected); GC (Neis gonorrhoeae) by NAA Not Detected (NotDetected)
[2024-05-11] MEDS: traMADol HCL 50 MG TABLET PO PRN (13:14)
--- NOTE | 2024-05-11 15:20 | Pharmacy Report ---
Pharmacy Glycemic Short Note 2 - Date of Service May 11, 2024 - Glycemic Short BSG Results (Last 24 hours): 05/10/24 05/11/24 05/11/24 19:22 05:24 05:28 Glucose POC Glucose 262 H 337 H* 218 H 05/11/24 05/11/24 05/11/24 05:31 07:55 08:29 Glucose 223 H POC Glucose 221 H 192 H 05/11/24 12:18 Glucose POC Glucose 217 H OUTPATIENT ANTIDIABETIC REGIMEN: * Lantus 40 units SQ daily * NovoLog SSI * metformin 500mg BID * HbA1c pending ASSESSMENT: * Yonis is a 39 YOM admitted with sever balanoposthitis/cellulitis with a history of T2DM. Pharmacy has been consulted to assist with glycemic management while inpatient. * Will initiate basal insulin at home dosage and allow for additional if BSGs remain elevated. * BSGs elevated upon admission, NovoLog initated at a weight based stress of 2 PLAN FOR INPATIENT GLYCEMIC CONTROL: * Hold outpatient oral diabetes medications * Basal insulin * Lantus 40 units SQ daily * Lantus 0-20 units SQ HS based off of BSG (see eMAR for additional details) * Bolus insulin * NovoLog per scale ACHS or Q6hrs while NPO * Goal Range: Low 110 mg/dL - High 140 mg/dL * Correction Factor: 15 mg/dL/unit * Nutritional / Prandial insulin per carb ratio of 1 unit per 15 grams CHO consumed
--- NOTE | 2024-05-11 22:43 | Hospitalist Progress Note ---
Date of Service May 11, 2024 Assessment & Plan (1) Penile discharge: (2) Acute cellulitis: (3) Type 2 diabetes mellitus: Plan Yonis is a 39-year-old male with PMH of T2DM and DKA. He presented on 05/10 for groin pain and penile discharge. Patient reports that the pain in his groin region is a 9.25 out of 10 at time admission. He characterizes it as a burning pain that feels like "fire", with occasional sharp stabbing pain in his groin. He reports his buttocks is numb at this time. No radiation, the pain does stay in the genitals. No numbness or tingling going down his legs. He endorses pus- like/serosanguineous discharge for the past 3 days. He denies prior history of STDs. #Penile discharge/groin pain No leukocytosis; afebrile on arrival Procalcitonin WNL CRP and ESR ordered, and downtrending A/P CT on arrival revealed small fluid collection along the right inguinal canal which may represent a scrotal hydrocele No soft tissue gas noted on A/P CT Blistering noted above the groin infection; ?Herpetic infection; ?Acute worsening of fungal infection Wound culture ordered, pending HSV 1+2 DNA PCR ordered, pending Chlam+GC RNA ordered, pending Given acute risk for herpetic infection, empiric coverage with valacyclovir 1000 mg p.o. BID Vancomycin 2000 mg IV q12h Cefepime 2000 mg IV q8h Acetaminophen and Dilaudid as needed for fever/pain control Urology consult appreciated: no need for surgery showing improvement. # Poorly controlled T2DM While there is no A1c on file, he reports his last A1c was around 12% Hold metformin Patient is normally on Lantus 40u daily Lantus BID + SSI while inpatient T2DM diet BSG ACHS Adjust regimen as needed Pharmacy glycemic management consult appreciated Diabetic education consult appreciated A1C machines are down. Chronic stable conditions: HLD-atorvastatin HTN-lisinopril Depression-sertraline Disposition: Admit to [facility] telemetry Full code T2DM diet VTE PPx: SCDs Admission and Anticipated Discharge Date Admission Date: May 10, 2024 Subjective Patient reports feeling better Physical Exam Physical Exam: General:NAD HEENT: normocephalic, atraumatic; : patient exhibits erythematous crusting lesions above the penis; penile discharge and erythema surrounding the genitals Results & Data Results & Data Vital Signs (Past 12 Hours) Vital Signs Temp Pulse Pulse Resp BP BP Pulse Ox 05/11/24 20:14 36.7 C 89 20 148/97 H 98 05/11/24 16:11 36.6 C 80 18 136/82 98 05/11/24 14:10 91 H 05/11/24 11:02 36.7 C 102 H 18 128/75 97 O2 Del Method 05/11/24 20:14 Room Air 05/11/24 16:11 Room Air 05/11/24 14:10 05/11/24 11:02 Room Air PG Care Time/CCT Total # of Minutes Spent Total Time Spent with Patient: Total time spent is greater than 50% in coordination of care (as documented) at patient's floor/unit and/or counseling patient: Coding Level of Care Code 86220 SUB INP/OBS CARE 3/50MIN Diagnoses Penile discharge R36.9 Acute cellulitis L03.90 Type 2 diabetes mellitus E11.9
[2024-05-11] MEDS: oxyCODONE HCL IR 5 MG TAB (IMMEDIATE RELEASE) PO STA (23:49)
[2024-05-12 07:24] LABS: Hematocrit (blood only) 40.2 % (42.0-52.0); Hemoglobin 13.2 g/dl (14.0-18.0); Mean Corpuscular Hemoglobin 26.7 pg (25.0-34.0); Mean Corpuscular Hgb Conc 32.8 g/dL (32.0-36.0); Mean Corpuscular Volume 81.4 fL (80.0-100.0); Mean Platelet Volume 8.1 fL (9.4-12.4); Platelet Count 180 K/uL (130-400); RDW Coefficient of Variation 13.5 % (11.5-14.5); RDW Standard Deviation 39.9 fL (36.4-46.3); Red Blood Count 4.94 M/uL (4.70-6.10); White Blood Count 4.12 K/ul (4.8-10.8)
--- NOTE | 2024-05-12 07:28 | Urology Progress Note ---
Date of Service May 12, 2024 Assessment & Plan (1) Acute cellulitis: Plan: Severe balanoposthitis/cellulitis Clinically improving with antibiotics and antifungals Patient remains afebrile, hemodynamically stable Labs todayno leukocytosis, hemoglobin 13.2, creatinine 0.58 Blood cultures no growth x 24 hours Wound culture prelim with strep pyogenes and strep agalactiae Urine culture pending Currently on cefepime, vancomycin and fluconazole Received 2 doses of fluconazole which is sufficient, will d/c Continue antibiotics, follow cultures Recommend strict glucose control No indication for surgery at this time will follow Admission and Anticipated Discharge Date Admission Date: May 10, 2024 Subjective Patient seen and examined at bedside this morning. Continues to have discomfort, but notes overall improvement. He reports he did require dose of oxycodone last night after little improvement from Tramadol. Voiding spontaneously. No fever or chills. Review of Systems Constitutional: as per Subjective / HPI Genitourinary: + as per Subjective / HPI Physical Exam Constitutional: + obese; no acute distress Respiratory: no respiratory distress and no labored breathing Neurologic: moves all extremities and awake Psychiatric: Orientation: alert, oriented x 3 and cooperative Genitourinary: Minimal change in the appearance of the scrotal skin and penile skinmild erythema, may be slightly improved Still with numerous little pustules and ulcerations, these appear stable and maybe slightly improved from yesterday Able to manipulate the skin slightly more secondary to improved pain Drainage/urine pooled within foreskin No fluctuant areas appreciated, no eschar, no crepitus Results & Data Vital Signs (Past 12 Hours) Vital Signs Temp Pulse Pulse Resp BP Pulse Ox O2 Del Method 05/12/24 07:00 89 05/12/24 03:44 36.5 C 86 20 145/81 H 98 Room Air 05/12/24 00:19 36.5 C 82 20 118/76 97 Room Air 05/11/24 21:45 78 05/11/24 20:14 36.7 C 89 20 148/97 H 98 Room Air PG Care Time/CCT Total # of Minutes Spent Total Time Spent with Patient: Total time spent is greater than 50% in coordination of care (as documented) at patient's floor/unit and/or counseling patient: Coding Level of Care Code 74263 SUB INP/OBS CARE 05/02MIN Diagnoses Acute cellulitis L03.90
[2024-05-12 07:40] LABS: BUN Creatinine Ratio 17.2 (10-20); C Reactive Protein 8.55 mg/dl (0-0.5); Calcium 8.6 mg/dl (8.6-10.3); Creatinine Clr Calc Pharmacy 281.7 ml/min; Potassium 4.2 mmol/L (3.5-5.1)
[2024-05-12] MEDS: VANCOMYCIN LEVEL ONE (08:20)
[2024-05-12] MEDS: LANTUS PER UNIT CHARGE SQ SCH (08:53)
[2024-05-12] MEDS ORDERED: LANTUS PER UNIT CHARGE SQ SCH (09:00)
--- NOTE | 2024-05-12 11:05 | Pharmacy Report ---
Pharmacy Glycemic Short Note 2 - Date of Service May 12, 2024 - Glycemic Short BSG Results (Last 24 hours): 05/11/24 05/11/24 05/11/24 12:18 17:07 20:41 Glucose POC Glucose 217 H 183 H 208 H 05/12/24 05/12/24 06:44 08:04 Glucose 204 H POC Glucose 194 H OUTPATIENT ANTIDIABETIC REGIMEN: * Lantus 40 units SQ daily * NovoLog SSI * metformin 500mg BID * HbA1c pending ASSESSMENT: 05/12: * Yonis received 84 units of insulin yesterday (50 were basal) * Fasting BSG this AM elevated, will give yesterday's total basal this AM and continue with scale at bedtime if BSGs still elevated * NovoLog tighted due to elevated post-prandials 05/11: * Yonis is a 39 YOM admitted with sever balanoposthitis/cellulitis with a history of T2DM. Pharmacy has been consulted to assist with glycemic manageme nt while inpatient. * Will initiate basal insulin at home dosage and allow for additional if BSGs remain elevated. * BSGs elevated upon admission, NovoLog initated at a weight based stress of 2 PLAN FOR INPATIENT GLYCEMIC CONTROL: * Hold outpatient oral diabetes medications * Basal insulin * Lantus 50 units SQ daily * Lantus 0-20 units SQ HS based off of BSG (see eMAR for additional details) * Bolus insulin * NovoLog per scale ACHS or Q6hrs while NPO * Goal Range: Low 110 mg/dL - High 140 mg/dL * Correction Factor: 12 mg/dL/unit * Nutritional / Prandial insulin per carb ratio of 1 unit per 4 grams CHO consumed
[2024-05-12 12:55] LABS: Estimated Average Glucose 324 mg/dl; Hemoglobin A1C 12.9 % (4.5-5.6)
[2024-05-12] MEDS: oxyCODONE HCL IR 5 MG TAB (IMMEDIATE RELEASE) PO STA (15:55)
[2024-05-12] MEDS: traMADol HCL 50 MG TABLET PO PRN (20:01)
[2024-05-12] MEDS: ACETAMINOPHEN 325 MG TAB PO SCH (21:45)
--- NOTE | 2024-05-12 23:14 | Hospitalist Progress Note ---
Date of Service May 12, 2024 Assessment & Plan (1) Penile discharge: (2) Acute cellulitis: (3) Type 2 diabetes mellitus: Plan Yonis is a 39-year-old male with PMH of T2DM and DKA. He presented on 05/10 for groin pain and penile discharge. Patient reports that the pain in his groin region is a 9.25 out of 10 at time admission. He characterizes it as a burning pain that feels like "fire", with occasional sharp stabbing pain in his groin. He reports his buttocks is numb at this time. No radiation, the pain does stay in the genitals. No numbness or tingling going down his legs. He endorses pus- like/serosanguineous discharge for the past 3 days. He denies prior history of STDs. #Penile discharge/groin pain No leukocytosis; afebrile on arrival Procalcitonin WNL CRP and ESR ordered, and downtrending A/P CT on arrival revealed small fluid collection along the right inguinal canal which may represent a scrotal hydrocele No soft tissue gas noted on A/P CT Blistering noted above the groin infection; ?Herpetic infection; ?Acute worsening of fungal infection Wound culture ordered, pending HSV 1+2 DNA PCR ordered, pending Chlam+GC RNA ordered, pending Given acute risk for herpetic infection, empiric coverage with valacyclovir 1000 mg p.o. BID stopped Vancomycin 2000 mg IV q12h as cultures not growing mrsa continueCefepime 2000 mg IV q8h Acetaminophen and Dilaudid as needed for fever/pain control Urology consult appreciated: no need for surgery showing improvement. continue above plan. # Poorly controlled T2DM While there is no A1c on file, he reports his last A1c was around 12% Hold metformin Patient is normally on Lantus 40u daily Lantus BID + SSI while inpatient T2DM diet BSG ACHS Adjust regimen as needed Pharmacy glycemic management consult appreciated Diabetic education consult appreciated A1C machines are down. Chronic stable conditions: HLD-atorvastatin HTN-lisinopril Depression-sertraline Disposition: Admit to [facility] telemetry Full code T2DM diet VTE PPx: SCDs d/w case management Admission and Anticipated Discharge Date Admission Date: May 10, 2024 Subjective Patient reports feeling well. Physical Exam Physical Exam: General:NAD HEENT: normocephalic, atraumatic; : patient exhibits improved erythematous crusting lesions above the penis; penile discharge and erythema surrounding the genitals Results & Data Results & Data Vital Signs (Past 12 Hours) Vital Signs Temp Pulse Pulse Resp BP Pulse Ox O2 Del Method 05/12/24 19:58 36.3 C L 81 20 133/80 95 Room Air 05/12/24 15:30 37 C 85 19 167/100 H 98 Room Air 05/12/24 13:43 80 05/12/24 11:35 36.7 C 83 19 149/82 H 97 Room Air PG Care Time/CCT Total # of Minutes Spent Total Time Spent with Patient: Total time spent is greater than 50% in coordination of care (as documented) at patient's floor/unit and/or counseling patient: Coding Level of Care Code 69667 SUB INP/OBS CARE 3/50MIN Diagnoses Penile discharge R36.9 Acute cellulitis L03.90 Type 2 diabetes mellitus E11.9
[2024-05-13 06:33] LABS: Hematocrit (blood only) 40.4 % (42.0-52.0); Hemoglobin 13.3 g/dl (14.0-18.0); Mean Corpuscular Hgb Conc 32.9 g/dL (32.0-36.0); Mean Corpuscular Volume 81.9 fL (80.0-100.0); Mean Platelet Volume 8.1 fL (9.4-12.4); Platelet Count 192 K/uL (130-400); RDW Coefficient of Variation 12.9 % (11.5-14.5); RDW Standard Deviation 38.8 fL (36.4-46.3); Red Blood Count 4.93 M/uL (4.70-6.10); White Blood Count 4.72 K/ul (4.8-10.8)
[2024-05-13 06:55] LABS: BUN Creatinine Ratio 18.9 (10-20); C Reactive Protein 4.95 mg/dl (0-0.5); Calcium 8.7 mg/dl (8.6-10.3)
--- NOTE | 2024-05-13 09:15 | Urology Progress Note ---
Date of Service May 13, 2024 Assessment & Plan (1) Acute cellulitis: (2) Cellulitis of scrotum: (3) Penile discharge: Plan: Severe balanoposthitis/cellulitis Clinically improving course of antifungals and continued antibiotics Patient remains afebrile, hemodynamically stable Labs todayno leukocytosis, hemoglobin 13.3, creatinine 0.53 Blood cultures no growth to date Wound culture w/ strep pyogenes and strep agalactiae Urine culture prelim no growth Received 2 doses of fluconazole Remains on cefepime and valacyclovir Continue antibiotic Recommend strict glucose control No surgical intervention warranted will sign off, please contact our service with any additional questions or concerns Admission and Anticipated Discharge Date Admission Date: May 10, 2024 Physical Exam Constitutional: + obese; no acute distress Respiratory: no respiratory distress and no labored breathing Neurologic: moves all extremities and awake Psychiatric: Orientation: alert, oriented x 3 and cooperative Genitourinary: Still with numerous little pustules and ulcerations of mons pubis, inguinal folds, scrotal skin and foreskin, these appear stable and slightly improved from yesterday Some crusting of foreskin lesions, able to manipulate the foreskin slightly more secondary to improved pain Drainage/urine pooled within foreskin No fluctuant areas appreciated, no eschar, no crepitus Results & Data Vital Signs (Past 12 Hours) Vital Signs Temp Pulse Pulse Resp BP Pulse Ox O2 Del Method 05/13/24 08:07 Room Air 05/13/24 07:27 36.7 C 77 18 177/90 H 97 Room Air 05/13/24 07:00 71 05/13/24 03:37 36.4 C L 74 20 134/77 97 Room Air 05/12/24 23:35 36.5 C 80 20 117/71 97 Room Air 05/12/24 21:29 72 PG Care Time/CCT Total # of Minutes Spent Total Time Spent with Patient: Total time spent is greater than 50% in coordination of care (as documented) at patient's floor/unit and/or counseling patient: Coding Level of Care Code 58518 SUB INP/OBS CARE 05/02MIN Diagnoses Acute cellulitis L03.90 Cellulitis of scrotum N49.2 Penile discharge R36.9
[2024-05-13 22:02] LABS: HSV Type 1 DNA Detected (Not Detected); HSV Type 2 DNA Not Detected (Not Detected)
--- NOTE | 2024-05-13 22:56 | Hospitalist Progress Note ---
Date of Service May 13, 2024 Assessment & Plan (1) Penile discharge: (2) Acute cellulitis: (3) Type 2 diabetes mellitus: Plan Yonis is a 39-year-old male with PMH of T2DM and DKA. He presented on 05/10 for groin pain and penile discharge. Patient reports that the pain in his groin region is a 9.25 out of 10 at time admission. He characterizes it as a burning pain that feels like "fire", with occasional sharp stabbing pain in his groin. He reports his buttocks is numb at this time. No radiation, the pain does stay in the genitals. No numbness or tingling going down his legs. He endorses pus- like/serosanguineous discharge for the past 3 days. He denies prior history of STDs. #Penile discharge/groin pain No leukocytosis; afebrile on arrival Procalcitonin WNL CRP and ESR ordered, and downtrending A/P CT on arrival revealed small fluid collection along the right inguinal canal which may represent a scrotal hydrocele No soft tissue gas noted on A/P CT Blistering noted above the groin infection; ?Herpetic infection; ?Acute worsening of fungal infection Wound culture ordered, pending HSV 1+2 DNA PCR ordered, pending Chlam+GC RNA ordered, pending Given acute risk for herpetic infection, empiric coverage with valacyclovir 1000 mg p.o. BID stopped Vancomycin 2000 mg IV q12h as cultures not growing mrsa continueCefepime 2000 mg IV q8h Acetaminophen and Dilaudid as needed for fever/pain control Urology consult appreciated: no need for surgery showing improvement/ now on tramadol 100 continue above plan. # Poorly controlled T2DM While there is no A1c on file, he reports his last A1c was around 12% Hold metformin Patient is normally on Lantus 40u daily Lantus BID + SSI while inpatient T2DM diet BSG ACHS Adjust regimen as needed Pharmacy glycemic management consult appreciated Diabetic education consult appreciated A1C machines are down. Chronic stable conditions: HLD-atorvastatin HTN-lisinopril Depression-sertraline Disposition: Admit to [facility] telemetry Full code T2DM diet VTE PPx: SCDs d/w case management Admission and Anticipated Discharge Date Admission Date: May 10, 2024 Subjective 39 yo male reports pain has improved Physical Exam Physical Exam: General:NAD HEENT: normocephalic, atraumatic; : patient exhibits improved erythematous crusting lesions above the penis; penile discharge and erythema surrounding the genitals Results & Data Results & Data Vital Signs (Past 12 Hours) Vital Signs Temp Pulse Pulse Resp BP Pulse Ox O2 Del Method 05/13/24 20:43 36.4 C L 75 20 133/91 97 Room Air 05/13/24 15:08 36.6 C 74 16 178/92 H 97 Room Air 05/13/24 13:02 87 05/13/24 11:34 36.6 C 73 18 149/80 H 97 Room Air PG Care Time/CCT Total # of Minutes Spent Total Time Spent with Patient: Total time spent is greater than 50% in coordination of care (as documented) at patient's floor/unit and/or counseling patient: Coding Level of Care Code 83101 SUB INP/OBS CARE 2/35MIN Diagnoses Penile discharge R36.9 Acute cellulitis L03.90 Type 2 diabetes mellitus E11.9
[2024-05-14] MEDS: HYDROmorphone INJ 0.5 MG/0.5 ML SYR IV PRN (04:21)
[2024-05-14 08:20] LABS: Hematocrit (blood only) 41.7 % (42.0-52.0); Hemoglobin 13.8 g/dl (14.0-18.0); Mean Corpuscular Hemoglobin 26.7 pg (25.0-34.0); Mean Corpuscular Hgb Conc 33.1 g/dL (32.0-36.0); Mean Corpuscular Volume 80.8 fL (80.0-100.0); Mean Platelet Volume 8.1 fL (9.4-12.4); Platelet Count 194 K/uL (130-400); RDW Coefficient of Variation 13.3 % (11.5-14.5); Red Blood Count 5.16 M/uL (4.70-6.10); White Blood Count 4.48 K/ul (4.8-10.8)
[2024-05-14 08:43] LABS: Calcium 8.9 mg/dl (8.6-10.3); Creatinine Clr Calc Pharmacy 281.3 ml/min; Potassium 4.3 mmol/L (3.5-5.1)
--- NOTE | 2024-05-14 22:53 | Hospitalist Progress Note ---
Date of Service May 14, 2024 Assessment & Plan (1) Penile discharge: (2) Acute cellulitis: (3) Type 2 diabetes mellitus: Plan Yonis is a 39-year-old male with PMH of T2DM and DKA. He presented on 05/10 for groin pain and penile discharge. Patient reports that the pain in his groin region is a 9.25 out of 10 at time admission. He characterizes it as a burning pain that feels like "fire", with occasional sharp stabbing pain in his groin. He reports his buttocks is numb at this time. No radiation, the pain does stay in the genitals. No numbness or tingling going down his legs. He endorses pus- like/serosanguineous discharge for the past 3 days. He denies prior history of STDs. #Penile discharge/groin pain No leukocytosis; afebrile on arrival Procalcitonin WNL CRP and ESR ordered, and downtrending A/P CT on arrival revealed small fluid collection along the right inguinal canal which may represent a scrotal hydrocele No soft tissue gas noted on A/P CT Blistering noted above the groin infection; ?Herpetic infection; ?Acute worsening of fungal infection Wound culture ordered, pending HSV 1+2 DNA PCR ordered, pending Chlam+GC RNA ordered, pending Given acute risk for herpetic infection, empiric coverage with valacyclovir 1000 mg p.o. BID stopped Vancomycin 2000 mg IV q12h as cultures not growing mrsa continueCefepime 2000 mg IV q8h Acetaminophen and Dilaudid as needed for fever/pain control Urology consult appreciated: no need for surgery showing improvement/ now on tramadol 100 continue above plan. Explained to patient that he does not need to be scrubbing his genitals to clean the lesion, the antiobiotics will do that. This may lead to further injury and worsening infection. will continue to monitor # Poorly controlled T2DM While there is no A1c on file, he reports his last A1c was around 12% Hold metformin Patient is normally on Lantus 40u daily Lantus BID + SSI while inpatient T2DM diet BSG ACHS Adjust regimen as needed Pharmacy glycemic management consult appreciated Diabetic education consult appreciated A1C machines are down. Chronic stable conditions: HLD-atorvastatin HTN-lisinopril Depression-sertraline Disposition: Admit to [facility] telemetry Full code T2DM diet VTE PPx: SCDs d/w case management Admission and Anticipated Discharge Date Admission Date: May 10, 2024 Subjective Patient reports his symptoms have improved. He has been scrubbing the area. Physical Exam Physical Exam: General:NAD HEENT: normocephalic, atraumatic; : patient exhibits improved erythematous crusting lesions above the penis; penile discharge and erythema surrounding the genitals Results & Data Results & Data Vital Signs (Past 12 Hours) Vital Signs Temp Pulse Pulse Resp BP Pulse Ox O2 Del Method 05/14/24 20:04 58 L 05/14/24 19:43 36.5 C 62 18 136/85 96 Room Air 05/14/24 15:26 36.5 C 56 L 18 123/78 96 Room Air 05/14/24 14:38 71 05/14/24 11:25 36.6 C 82 18 140/88 98 Room Air PG Care Time/CCT Total # of Minutes Spent Total Time Spent with Patient: Total time spent is greater than 50% in coordination of care (as documented) at patient's floor/unit and/or counseling patient: Coding Level of Care Code 23399 SUB INP/OBS CARE 2/35MIN Diagnoses Penile discharge R36.9 Acute cellulitis L03.90 Type 2 diabetes mellitus E11.9
[2024-05-15 08:28] LABS: Hematocrit (blood only) 41.3 % (42.0-52.0); Hemoglobin 13.8 g/dl (14.0-18.0); Mean Corpuscular Hgb Conc 33.4 g/dL (32.0-36.0); Mean Corpuscular Volume 80.7 fL (80.0-100.0); Mean Platelet Volume 8.3 fL (9.4-12.4); Platelet Count 207 K/uL (130-400); RDW Coefficient of Variation 13.1 % (11.5-14.5); RDW Standard Deviation 38.3 fL (36.4-46.3); Red Blood Count 5.12 M/uL (4.70-6.10); White Blood Count 4.66 K/ul (4.8-10.8)
[2024-05-15 09:01] LABS: BUN Creatinine Ratio 23.4 (10-20); C Reactive Protein 2.37 mg/dl (0-0.5); Calcium 8.8 mg/dl (8.6-10.3); Creatinine Clr Calc Pharmacy 317.3 ml/min; Potassium 4.1 mmol/L (3.5-5.1)
--- NOTE | 2024-05-15 14:24 | Pharmacy Report ---
Pharmacy Glycemic Short Note 2 - Date of Service May 15, 2024 - Glycemic Short BSG Results (Last 24 hours): 05/14/24 05/14/24 05/15/24 16:53 20:38 07:16 Glucose 146 H POC Glucose 80 84 05/15/24 05/15/24 07:36 12:04 Glucose POC Glucose 139 H 178 H OUTPATIENT ANTIDIABETIC REGIMEN: * Lantus 40 units SQ daily * NovoLog SSI * metformin 500mg BID * HbA1c pending ASSESSMENT: 05/15: * Patient received total of 93 units of insulin yesterday of which 50 units were basal * Fasting BSG within range, will continue same dose * Dinner and HS blood sugars decreasing yesterday, will loosen novolog at lunch time to hopefully prevent hypoglycemia * Could consider tomorrow tighter novolog with breakfast and looser rest of day 05/12: * Yonis received 84 units of insulin yesterday (50 were basal) * Fasting BSG this AM elevated, will give yesterday's total basal this AM and continue with scale at bedtime if BSGs still elevated * NovoLog tighted due to elevated post-prandials 05/11: * Yonis is a 39 YOM admitted with sever balanoposthitis/cellulitis with a history of T2DM. Pharmacy has been consulted to assist with glycemic management while inpatient. * Will initiate basal insulin at home dosage and allow for additional if BSGs remain elevated. * BSGs elevated upon admission, NovoLog initated at a weight based stress of 2 PLAN FOR INPATIENT GLYCEMIC CONTROL: * Hold outpatient oral diabetes medications * Basal insulin * Lantus 50 units SQ daily * Bolus insulin * NovoLog per scale ACHS or Q6hrs while NPO * Goal Range: Low 110 mg/dL - High 140 mg/dL * Correction Factor: 18 mg/dL/unit * Nutritional / Prandial insulin per carb ratio of 1 unit per 6 grams CHO consumed
--- NOTE | 2024-05-15 23:03 | Hospitalist Progress Note ---
Date of Service May 15, 2024 Assessment & Plan (1) Penile discharge: (2) Acute cellulitis: (3) Type 2 diabetes mellitus: Plan Yonis is a 39-year-old male with PMH of T2DM and DKA. He presented on 05/10 for groin pain and penile discharge. Patient reports that the pain in his groin region is a 9.25 out of 10 at time admission. He characterizes it as a burning pain that feels like "fire", with occasional sharp stabbing pain in his groin. He reports his buttocks is numb at this time. No radiation, the pain does stay in the genitals. No numbness or tingling going down his legs. He endorses pus- like/serosanguineous discharge for the past 3 days. He denies prior history of STDs. #Penile discharge/groin pain No leukocytosis; afebrile on arrival Procalcitonin WNL CRP and ESR ordered, and downtrending A/P CT on arrival revealed small fluid collection along the right inguinal canal which may represent a scrotal hydrocele No soft tissue gas noted on A/P CT Blistering noted above the groin infection; ?Herpetic infection; ?Acute worsening of fungal infection Wound culture ordered, pending HSV 1+2 DNA PCR ordered, pending Chlam+GC RNA ordered, pending Given acute risk for herpetic infection, empiric coverage with valacyclovir 1000 mg p.o. BID stopped Vancomycin 2000 mg IV q12h as cultures not growing mrsa continueCefepime 2000 mg IV q8h Acetaminophen and Dilaudid as needed for fever/pain control Urology consult appreciated: no need for surgery showing improvement/ now on tramadol 100 continue above plan. Explained to patient that he does not need to be scrubbing his genitals to clean the lesion, the antiobiotics will do that. This may lead to further injury and worsening infection. will continue to monitor will continue another day of IV antibiotics. anticipate discharge on 05/16 # Poorly controlled T2DM While there is no A1c on file, he reports his last A1c was around 12% Hold metformin Patient is normally on Lantus 40u daily Lantus BID + SSI while inpatient T2DM diet BSG ACHS Adjust regimen as needed Pharmacy glycemic management consult appreciated Diabetic education consult appreciated A1C: showing 12 will need to increase lantus at dishcarge and add mounjaro. Chronic stable conditions: HLD-atorvastatin HTN-lisinopril Depression-sertraline [facility] Full code T2DM diet VTE PPx: SCDs d/w case management Admission and Anticipated Discharge Date Admission Date: May 10, 2024 Subjective Patient reports no new symptoms. Physical Exam Physical Exam: General:NAD HEENT: normocephalic, atraumatic; : patient exhibits improved erythematous crusting lesions above the penis; no longer having penile discharge with decreased erythema surrounding the genitals, mainly focused on his foreskin. Results & Data Results & Data Vital Signs (Past 12 Hours) Vital Signs Temp Pulse Pulse Resp BP Pulse Ox O2 Del Method 05/15/24 21:54 68 05/15/24 19:40 36.7 C 71 20 135/81 97 Room Air 05/15/24 15:03 36.8 C 78 18 148/82 H 98 Room Air 05/15/24 14:21 82 05/15/24 11:13 36.8 C 79 18 123/75 96 Room Air PG Care Time/CCT Total # of Minutes Spent Total Time Spent with Patient: Total time spent is greater than 50% in coordination of care (as documented) at patient's floor/unit and/or counseling patient: Coding Level of Care Code 18275 SUB INP/OBS CARE 3/50MIN Diagnoses Penile discharge R36.9 Acute cellulitis L03.90 Type 2 diabetes mellitus E11.9
[2024-05-16 08:10] VITALS: PULSE 76; RESP 18; TEMP 98.1; O2SAT 98
[2024-05-16 08:27] LABS: Hematocrit (blood only) 43.7 % (42.0-52.0); Hemoglobin 14.4 g/dl (14.0-18.0); Mean Corpuscular Hemoglobin 26.9 pg (25.0-34.0); Mean Corpuscular Volume 81.5 fL (80.0-100.0); Mean Platelet Volume 8.3 fL (9.4-12.4); Platelet Count 208 K/uL (130-400); RDW Coefficient of Variation 13.2 % (11.5-14.5); RDW Standard Deviation 39.1 fL (36.4-46.3); Red Blood Count 5.36 M/uL (4.70-6.10); White Blood Count 5.97 K/ul (4.8-10.8)
[2024-05-16 08:34] LABS: BUN Creatinine Ratio 20.7 (10-20); C Reactive Protein 1.78 mg/dl (0-0.5); Calcium 9.2 mg/dl (8.6-10.3); Creatinine Clr Calc Pharmacy 278.2 ml/min; Potassium 3.9 mmol/L (3.5-5.1)
--- NOTE | 2024-05-16 11:07 | Discharge Summary ---
Discharge Summary Date of Service May 16, 2024 Principal Dx & Hospital Course #1 = Principal Diagnosis (1) Penile discharge: (2) Acute cellulitis: (3) Type 2 diabetes mellitus: Irena Somers is a 39-year-old male with PMH of T2DM and DKA. He presented on 05/10 for groin pain and penile discharge. Patient reports that the pain in his groin region is a 9.25 out of 10 at time admission. He characterizes it as a burning pain that feels like "fire", with occasional sharp stabbing pain in his groin. He reports his buttocks is numb at this time. No radiation, the pain does stay in the genitals. No numbness or tingling going down his legs. He endorses pus- like/serosanguineous discharge for the past 3 days. He denies prior history of STDs. #Penile discharge/groin pain No leukocytosis; afebrile on arrival Procalcitonin WNL CRP and ESR ordered, and downtrending A/P CT on arrival revealed small fluid collection along the right inguinal canal which may represent a scrotal hydrocele No soft tissue gas noted on A/P CT Blistering noted above the groin infection; ?Herpetic infection; ?Acute worsening of fungal infection Wound culture ordered, pending HSV 1+2 DNA PCR ordered, pending Chlam+GC RNA ordered, pending Given acute risk for herpetic infection, empiric coverage with valacyclovir 1000 mg p.o. BID stopped Vancomycin 2000 mg IV q12h as cultures not growing mrsa continueCefepime 2000 mg IV q8h Acetaminophen and Dilaudid as needed for fever/pain control Urology consult appreciated: no need for surgery showing improvement/ now on tramadol 100 continue above plan. Explained to patient that he does not need to be scrubbing his genitals to clean the lesion, the antiobiotics will do that. This may lead to further injury and worsening infection. will continue to monitor will continue another day of IV antibiotics. anticipate discharge on 05/16 # Poorly controlled T2DM While there is no A1c on file, he reports his last A1c was around 12% Hold metformin Patient is normally on Lantus 40u daily Lantus BID + SSI while inpatient T2DM diet BSG ACHS Adjust regimen as needed Pharmacy glycemic management consult appreciated Diabetic education consult appreciated A1C: showing 12 will need to increase lantus at [facility] and add mounjaro. Chronic stable conditions: HLD-atorvastatin HTN-lisinopril Depression-sertraline Morbid obesity, BMI 44.4 kg/m*m BMI is 44.2 kg/m*m. Risk Factor(s): Caloric intake > expenditure, uncontrolled T2DM life style modifications Disposition: Admit to [facility] telemetry Full code T2DM diet VTE PPx: SCDs d/w case management Admission HPI Per Admitting Provider Yonis is a 39-year-old male with PMH of T2DM and DKA. He presented on 05/10 for groin pain and penile discharge. Patient reports that the pain in his groin region is a 9.25 out of 10 at time admission. He characterizes it as a burning pain that feels like "fire", with occasional sharp stabbing pain in his groin. He reports his buttocks is numb at this time. No radiation, the pain does stay in the genitals. No numbness or tingling going down his legs. He endorses pus- like/serosanguineous discharge for the past 3 days. He denies prior history of STDs. He is sexually active with his . He reports he did have a fever a couple days ago measuring up to 102 F. He has been taking ibuprofen, Amrita- Chadwick, DayQuil, and NyQuil for his symptoms, without much relief. Patient took his regular morning medicine today; he normally takes 40 units of Lantus daily, but only took 20 this morning. Only recent change in medication, is that he started back on metformin yesterday. Patient denies smoking tobacco, but does endorse chewing tobacco. He denies vaping or recent alcohol use. 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 He denies prior history of DVT/PE. In regard to diabetes, patient previously followed with Dr. Ravi ([facility]) and Mary, and would like to be reconnected if possible. Patient is hypertensive at 147/92, and tachycardic at 106 bpm at time of admission. ED course: Vancomycin 2750 mg IV Zosyn 4.5 g IV NSS 1000 mL IV x 2 Dilaudid 1 mg IV ROS: Patient endorses burning penile pain/discharge, fever, body aches, chills, night-sweats, an episode of DAVIS (resolved; occurred while sick with flu earlier in this week), and numbness/tingling in the buttocks. Patient denies headaches, changes in vision, photophobia, dry cough, chest pain, pleuritic CP, SOB at rest, abdominal pain, N/V/D, or numbness or tingling going down the legs. Discharge Exam General:NAD HEENT: normocephalic, atraumatic; : patient exhibits improved erythematous crusting lesions above the penis; no longer having penile discharge with decreased erythema surrounding the genitals, mainly focused on his foreskin. Discharge Plan Discharge Items Patient Disposition: Home - Self-Care Reason For Visit: PENILE DISCHARGE/INFECTION Discharge Diagnosis: celulitis Activity: Resume your previous activity Non-emergency contact: Primary Care Provider Call non-emergency contact if: you have any medication questions Follow-up/Referrals: PCP,NO [Physician] - Diet: Carb Consistent or DM2 Addtl Attending Provider Instructions: Recommend close followup with PCP within this upcoming week. Addtl Compactor Driver Provider Instructions: DISCHARGE RECOMMENDATIONS: 1.) Start Mounjaro 2.5mg weekly. 2.) Continue once daily Lantus. 3.) Discontinue Metformin. We can consider extended release version of metformin as this version is better tolerated. 4.) Lifestyle changes- regular/balanced meals thru day, smaller portions carbs/starches, include afternoon snack to help prevent overconsumption at dinner meal. 5.) Start Dexcom G7 sensor immediately prior to admit. Otherwise, SMBG 2x/day- fasting daily and another time. 6.) Pt will need close follow-up at time of discharge. Is interested in following up with [facility]. Pending Studies at Discharge: No Stand-Alone Forms: My [facility], Smoking Cessation Medications and DC Order Prescriptions: New valacyclovir 500 mg Tablet 1,000 mg PO BID Qty: 9 0RF celecoxib [Celebrex] 200 mg capsule 200 mg PO BID Qty: 14 0RF acetaminophen 325 mg Tablet 650 mg PO QID Qty: 120 0RF amoxicillin 875 mg tablet 875 mg PO BID Qty: 9 0RF Mounjaro 2.5 mg/0.5 mL pen injector 2.5 mg subcut .saturday Qty: 2 0RF insulin glargine [Lantus Solostar U-100 Insulin] 100 unit/mL (3 mL) insulin pen 50 unit subcut DAILY Qty: 15 0RF oxycodone 5 mg tablet 5 mg PO Q8H PRN (Reason: pain) Qty: 15 0RF docusate sodium [Colace] 100 mg capsule 100 mg PO DAILY Qty: 7 0RF Continued atorvastatin 10 mg tablet 10 mg PO DAILY lisinopril 20 mg tablet 20 mg PO DAILY sertraline 50 mg tablet 50 mg PO DAILY insulin aspart U-100 [Novolog FlexPen U-100 Insulin] 100 unit/mL (3 mL) Insulin Pen 1 sliding scale dose SUBCUT USEASDIRECTD Rx Instructions: SLIDING SCALE DOSE PT IS SUPPOSED TO USE W/ MEALS Discontinued metformin 500 mg Tablet 500 mg PO BID insulin glargine [Lantus Solostar U-100 Insulin] 100 unit/mL (3 mL) insulin pen 40 unit SUBCUT DAILY Discharge Orders: Discharge Order (Routine); Ordered 05/16/24 Ordered By: Adam Gutierrez Admission Data Admit Date/Time: 05/10/24 17:01 Attending Provider: Adam Gutierrez Admit Provider: Nael Giraldo Primary Care Provider: Don Gaston Other Providers: Nael Giraldo Hospital Stay Data Consultations 05/10/24 16:22 ED Decision to Admit Stat 05/10/24 16:42 Consult Urology Routine Diagnostic Imagining Performed 05/10/24 14:17 CT abd pelvis IV con only Stat Pending Results Patient Have Any Pending Studies at Discharge: No Discharge Instructions Given to Patient (Per Discharging Provider) Recommend close followup with PCP within this upcoming week. Coding Diagnoses Penile discharge R36.9 Acute cellulitis L03.90 Type 2 diabetes mellitus E11.9
[2024-05-16] MEDS: CeleBREX 200 MG CAP PO ONE (11:24)
[2024-05-16 11:57] VITALS: BP 140/94
== END 2024-05-16 13:24 | disposition home or self-care (01) | DRG 728 ==
LOC: ED 13:25 → 2N 17:01 → SUATTDRO 17:01 → 2N 17:35